=== PATIENT | female | born 1985 | race Caucasian/White ===

== ENCOUNTER 2020-12-02 16:10 | Emergency (ER) | payer OTHER ==
[~2020-12-02] VITALS: Ht 172.7 cm; Wt 125.0 kg
[2020-12-02 16:15] VITALS: BP 162/97; Ht 172.7 cm; Wt 125.0 kg
[2020-12-02] MEDS ORDERED: ADVIL100 M1 (16:18)
== END 2020-12-02 18:08 | disposition home or self-care (01) ==
LOC: D.ER 16:10
DX: S93.402A Sprain of unspecified ligament of left ankle, initial encounter (principal); W18.40XA Slipping, tripping and stumbling without falling, unspecified, initial encounter; Y93.9 Activity, unspecified; Y92.9 Unspecified place or not applicable